=== PATIENT | female | born 1960 | race Caucasian/White ===

== ENCOUNTER 2016-12-19 06:24 | Day surgery (SDC) | payer OTHER ==
[~2016-12-19] VITALS: Ht 160 cm; Wt 74.8 kg
[~2016-12-19 06:24] MED LIST: PHEN-538; SULF1TAB7
[2016-12-19] MEDS ORDERED: NO MEDS (07:08)
[2016-12-19 07:57] VITALS: BP 143/74; PULSE 60; RESP 20
--- NOTE | 2016-12-19 08:37 | OPPN ---
Date/Time of Note Date/Time of Note DATE: 12/19/16 TIME: 08:35 Operative Report Preoperative Diagnosis Abdominal pain Chronic heartburn Screening Postoperative Diagnosis Hiatal hernia Reflux esophagitis with erosions Gastritis with erosions Internal hemorrhoid Operation/Procedure Performed Esophagogastroduodenoscopy and biopsy Colonoscopy Provider: DAYNE MUHAMMAD MD Anesthesia Type: moderate sedation Estimated blood loss: none Transfusion Required: no Specimens Gastric mucosal biopsy Grafts/Implants: none Complications: no DAYNE MUHAMMAD MD Dec 19, 2016 08:37
[2016-12-19] MEDS ORDERED: MIDAZOLAM 1 MG/ML 2 ML INJ ONE ×2 (08:51)
[2016-12-19] MEDS ORDERED: FENTAnyl 50 MCG/ML VIAL ONE (08:52)
[2016-12-19 09:00] VITALS: BP 109/71; RESP 18
--- NOTE | 2016-12-19 18:09 | GILP ---
DATE OF PROCEDURE: 12/19/2016 PROCEDURE PERFORMED: 1. Esophagogastroduodenoscopy and biopsy. 2. Colonoscopy. SURGEON: Lisy Leigh MD PREOPERATIVE DIAGNOSES: 1. Abdominal pain. 2. Chronic heartburn. 3. Screening colonoscopy. POSTOPERATIVE DIAGNOSES: 1. Hiatal hernia. 2. Reflux esophagitis with erosions. 3. Gastritis with erosions. 4. Gastric mucosal biopsies were taken for Helicobacter pylori test. 5. Colonoscopy all the way to the cecum. 6. Internal hemorrhoids. 7. No colon neoplasm was identified. INDICATIONS FOR PROCEDURE: Ms. Sanjuanita Vyas is a 55-year-old female patient who had upper abdominal pain and chronic heartburn not responding to therapy. Patient also needed screening colonoscopy. The procedures and possible complications were well explained to the patient. She understood and consented to the procedure. DESCRIPTION OF PROCEDURE: Under the influence of fentanyl and Versed, the gastroscope was carefully introduced into esophagus. Under direct vision, it was advanced to the stomach, into the pylorus, into the duodenal bulb, and descending duodenum. FINDINGS: Esophagus: Patient had a hiatal hernia with reflux esophagitis and erosions. S Stomach: She had gastritis with erosions. Gastric mucosal biopsies were taken for H. pylori test. Duodenum was normal. The colonoscope was carefully introduced in the rectum. Under direct vision, it was advanced all the way to the cecum. Findings: Patient had internal hemorrhoids. No colon neoplasm was identified. She tolerated the procedures very well, and there was no complication from the procedures. At the end of procedure, she was awake with stable vital signs, and she was discharged home in care of her family. IMPRESSION: Please see postoperative diagnoses. PLAN: 1. Omeprazole 40 mg p.o. q.a.m. 2. Zantac 300 mg p.o. q.h.s. 3. Await H. pylori test report. 4. Next screening colonoscopy in 10 years. Dictated By: MD RACHAEL Zhou/demetrius/pam /Document#: [id number]
== END 2016-12-19 12:03 | disposition home or self-care (01) ==
LOC: GIL 06:24
PROVIDERS: ATTEND Internal Medicine Gastroenterology
DX: Z12.11 Encounter for screening for malignant neoplasm of colon (principal); K29.60 Other gastritis without bleeding; K44.9 Diaphragmatic hernia without obstruction or gangrene; K21.0 Gastro-esophageal reflux disease with esophagitis; K64.8 Other hemorrhoids
CPT/HCPCS: 43239; 45378; 87081; J2250; J3010; Z7610

== ENCOUNTER 2017-05-24 09:58 | Emergency (ER) | END 2017-05-24 17:09 | disposition left against medical advice (07) ==

== ENCOUNTER 2017-05-27 14:28 | Emergency (ER) | END 2017-05-27 20:51 | disposition home or self-care (01) ==

== ENCOUNTER 2017-10-17 20:25 | Emergency (ER) | END 2017-10-18 00:20 | disposition home or self-care (01) ==

== ENCOUNTER 2018-05-02 10:29 | Inpatient (IN) | payer OTHER ==
[~2018-05-02] VITALS: Ht 157.5 cm; Wt 64.6 kg
[~2018-05-02 10:29] MED LIST changes: +ALPH200T2 PO; +CEPH-443 PO; +GABA300C16 PO; +GLIP5TAB13 PO; +METF500T24 PO; -PHEN-538; -SULF1TAB7
[2018-05-02] MEDS ORDERED: SOD CHLORIDE 0.9% 500 ML IV STA (16:39)
[2018-05-02] MEDS ORDERED: ALBUTEROL 0.5% (NEB) 2.5 MG/0.5 ML AMP INH STA (16:39)
[2018-05-02] MEDS ORDERED: CEFTRIAXONE 1 GM/50 ML (PMX) 50 ML IVPB ONE (17:30)
--- NOTE | 2018-05-02 18:23 | ERD ---
ER Documentation Chief Complaint Chief Complaint ANXIETY,DIZZINESS, AP,SOB, HAND NUMBNESS,INSOMNIA, HPI 57-year-old woman here with multiple complaints including recent dizziness, weakness, shortness of breath, paresthesias, insomnia. She denies chest pain, no cough, no fevers or chills, no vomiting or diarrhea, no headache or blurry vision. Patient had increased urinary frequency today. ROS All systems reviewed and are negative except as per history of present illness. Medications Home Meds Discontinued Reported Medications Alpha Lipoic Acid (Alpha Lipoic Acid) Unknown Strength Tablet, 250 MG PO TID, TAB 10/17/17 Metformin Hcl* (Metformin Hcl*) 500 Mg Tablet, 500 MG PO WITH BREAKFAST DINNE, #60 TAB 10/17/17 Glipizide* (Glipizide*) 5 Mg Tablet, 5 MG PO AC BREAKFAST DINNER, TAB 10/17/17 Discontinued Scripts Cephalexin* (Keflex*) 500 Mg Capsule, 500 MG PO QID for 5 Days, CAP Prov:NNACY DIXON S. 10/18/17 Gabapentin* (Gabapentin*) 300 Mg Capsule, 300 MG PO BID, #60 CAP Prov:NANCY DIXON S. 10/18/17 Allergies Allergies: Coded Allergies: No Known Allergy (Verified , 05/02/18) PMhx/Soc Diabetes mellitus, hypertension History of Surgery: Yes (C SECTION) Anesthesia Reaction: No Hx Neurological Disorder: No Hx Respiratory Disorders: No Hx Cardiac Disorders: No Hx Psychiatric Problems: No Hx Miscellaneous Medical Probl: Yes (Chronic UTI, DM) Hx Alcohol Use: No Hx Substance Use: No Hx Tobacco Use: No Smoking Status: Never smoker FmHx Family History: No diabetes Physical Exam Vitals Vital Signs Date Temp Pulse Resp B/P (MAP) Pulse Ox O2 O2 Flow FiO2 Time Delivery Rate 05/02/18 99.1 81 22 138/81 100 Room Air 17:55 (100) 05/02/18 72 18 100 21 16:46 05/02/18 98.2 79 18 149/78 99 10:36 (101) Physical Exam GENERAL: Well-developed, well-nourished, appears dehydrated, mild confusion, afebrile HEENT: Moist mucous membranes, pink conjunctiva, no cervical spine tenderness or step-off deformities, no goiter, no jaundice or icterus, extraocular movements intact without pain. No submandibular induration, and no pharyngeal erythema NEURO: Alert and oriented 3, patient has no focal deficits or facial asymmetry, she is able to answer simple questions and follow commands but she does appear confused. CARDIAC: Regular rate and rhythm, no murmurs rubs or gallops LUNGS: Clear bilaterally no wheezing crackles or stridor ABDOMEN: Soft nontender, no guarding, no rigidity, no rebound, no psoas sign no obturator sign. Normoactive bowel sounds SKIN: Warm and dry to touch, no abrasions, contusions, or hematomas, no lacerations, no ecchymosis, no target lesions, and without ulcers EXTREMIT: appears anxious Result Diagram: 05/02/18 1645 05/02/18 1645 Results 24 hrs Laboratory Tests Test 05/02/18 16:45 White Blood Count 7.7 10^3/ul Red Blood Count 4.88 10^6/ul Hemoglobin 14.4 g/dl Hematocrit 44.5 % Mean Corpuscular Volume 91.2 fl Mean Corpuscular Hemoglobin 29.5 pg Mean Corpuscular Hemoglobin Concent 32.4 g/dl Red Cell Distribution Width 13.1 % Platelet Count 291 10^3/UL Mean Platelet Volume 10.8 fl Immature Granulocytes % 0.100 % Neutrophils % 47.7 % Lymphocytes % 43.2 % Monocytes % 6.5 % Eosinophils % 1.6 % Basophils % 0.9 % Nucleated Red Blood Cells % 0.0 /100WBC Immature Granulocytes # 0.010 10^3/ul Neutrophils # 3.7 10^3/ul Lymphocytes # 3.3 10^3/ul Monocytes # 0.5 10^3/ul Eosinophils # 0.1 10^3/ul Basophils # 0.1 10^3/ul Nucleated Red Blood Cells # 0.0 10^3/ul Prothrombin Time 12.0 Sec Prothrombin Time Ratio 0.9 INR International Normalized Ratio 0.88 Activated Partial Thromboplast Time 28.9 Sec Urine Color YELLOW Urine Clarity SLIGHTLY CLOUDY Urine pH 6.0 Urine Specific [place] 1.014 Urine Ketones NEGATIVE mg/dL Urine Nitrite NEGATIVE mg/dL Urine Bilirubin NEGATIVE mg/dL Urine Urobilinogen NEGATIVE mg/dL Urine Leukocyte Esterase 3+ Tyra/ul Urine Microscopic RBC 1 /HPF Urine Microscopic WBC 56 /HPF Urine Hemoglobin NEGATIVE mg/dL Urine Glucose NEGATIVE mg/dL Urine Total Protein NEGATIVE mg/dl Sodium Level 143 mmol/L Potassium Level 4.3 mmol/L Chloride Level 108 mmol/L Carbon Dioxide Level 17 mmol/L Anion Gap 18 Blood Urea Nitrogen 18 mg/dl Creatinine 0.43 mg/dl Est Glomerular Filtrat Rate mL/min > 60 mL/min Glucose Level 100 mg/dl Calcium Level 9.8 mg/dl Total Bilirubin 0.0 mg/dl Direct Bilirubin 0.00 mg/dl Indirect Bilirubin 0.0 mg/dl Aspartate Amino Transf (AST/SGOT) 30 IU/L Alanine Aminotransferase (ALT/SGPT) 31 IU/L Alkaline Phosphatase 83 IU/L Troponin I < 0.012 ng/ml B-Type Natriuretic Peptide 74 PG/ML Total Protein 8.5 g/dl Albumin 4.7 g/dl Globulin 3.80 g/dl Albumin/Globulin Ratio 1.23 Lipase 63 U/L Thyroid Stimulating Hormone (TSH) 2.960 MIU/L Free Thyroxine 1.20 ng/dl Free Triiodothyronine (T3) pg/mL 3.78 pg/ml Current Medications Medications Dose Sig/Shahnaz Start Time Status Last (Trade) Ordered Route PRN Stop Time Admin Dose Reason Admin Albuterol 5 mg ONCE STAT 05/02/18 DC 05/02/18 (Proventil INH 16:39 16:46 0.5% (Neb)) 05/02/18 16:42 Sodium 500 ml @ Q1H STAT 05/02/18 DC 05/02/18 Chloride 500 mls/hr IV 16:39 16:52 05/02/18 17:38 Ceftriaxone 50 ml @ ONCE ONCE 05/02/18 DC 05/02/18 Sodium 100 mls/hr IVPB 17:30 17:49 05/02/18 17:59 Procedures/MDM IV line was established 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 Patient was afebrile EKG performed, read by me: 76 bpm, normal sinus rhythm, normal axis, no acute ST segment changes, narrow QRS complex, with good R-wave progression in precordial leads. Chest X-ray 1V Interpreted by me: Soft Tissue: No acute abnormalities Bones: No acute abnormalities Mediastinum/Cardiac Silhouette/Lungs: No acute abnormalities CBC is unremarkable, electrolytes revealed dehydration, liver function tests normal, troponin was negative, flu swab negative, urinalysis is positive for infection. Thyroid panel normal. I administered 1 L normal saline IV for dehydration ceftriaxone 1 g IV for acute UTI. Patient was dehydrated and has mild confusion with an active UTI, she will be admitted to [facility] for continued medical management and IV antibiotics Departure Diagnosis: Primary Impression: Acute UTI Additional Impression: Acute dehydration Condition: DOC Ledbetter MD May 02, 2018 18:21
[2018-05-02 20:15] VITALS: BP 149/96; PULSE 84; RESP 18
[2018-05-02] MEDS ORDERED: ONDANSETRON 4 MG INJ IV PRN (21:30)
[2018-05-02] MEDS ORDERED: ACETAMINOPHEN 325 MG TAB PO PRN (21:30)
[2018-05-02] MEDS ORDERED: DEXTROSE 50% 50 ML SYRINGE IV PRN ×2 (21:30)
[2018-05-02] MEDS ORDERED: GLUCOSE GEL 15 GRAM TUBE PO PRN ×2 (21:30)
[2018-05-02] MEDS ORDERED: SOD CHLORIDE 0.9% 1,000 ML IV SCH (21:30)
[2018-05-02] MEDS ORDERED: GLUCAGON 1 MG INJ IM PRN (21:30)
[2018-05-02] MEDS ORDERED: GLUCOSE GEL 15 GRAM TUBE BUCCAL PRN (21:30)
[2018-05-02 22:56] VITALS: Ht 157.5 cm; Wt 64.6 kg
[2018-05-03] MEDS ORDERED: LORAZEPAM 0.5 MG TAB PO ONE (01:00)
--- NOTE | 2018-05-03 01:30 | NUR ---
pt admitted w/ diagnosis of UTI,AMS from ER via [facility]. alert,oriented x4, no sob, w/ multiple complaints: dizziness, sob, insomnia, pain in the back of the neck, tingling sensation in both upper and lower extremities. pt states she is in a lot of stress ,unable to sleep 2 days in a row and today is the third day. Oriented to staff, bed light, bed control, hourly rounding. skin assessment done. Belongings checked. DR Velasco made aware of pt's admission w/ orders made and carried out. urine sent for urine culture. pt states she is unable to sleep but does not want medication for sleep instead she wants medication to help her calm down. Ativan 0.5 mg tab po given as prescribed after pt still complained of being anxious even after providing relaxation techniques.at this time pt noted asleep in bed. will continue to monitor Addendum: 05/03/18 at 0654 by VALENTIN ESTRADA RN pt states she was able to sleep for 5 hours. no complaint at this time
[2018-05-03 02:00] VITALS: BP 124/77; PULSE 63; RESP 18
[2018-05-03] MEDS ORDERED: ACCU-CHEK XX SCH (02:00)
[2018-05-03] MEDS ORDERED: PANTOPRAZOLE 40 MG INJ IV SCH (06:00)
[2018-05-03 07:53] VITALS: BP 139/78; PULSE 73; RESP 16
[2018-05-03] MEDS: INSULIN ASPART [NOVOLOG] 3 ML PEN SC SCH ×2 (07:57→12:00)
--- NOTE | 2018-05-03 08:03 | HP ---
Date/Time of Note Date/Time of Note DATE: 05/03/18 TIME: 08:03 Assessment/Plan VTE Prophylaxis Risk score (from Ns)>0 risk: 1 SCD applied (from Ns): No SCD contraindicated: low risk/ambulating Pharmacological prophylaxis: NA/contraindicated Pharm contraindication: low risk/ambulating Lines/Catheters [facility] Peripheral IV Urinary Cath still in place: No Assessment/Plan Hospital Course 1. UTI 2. Hx of DM, HG A1 C is 5.6 now. Pt reported after diagnosis she changed her diet, lost 32 lb and did not take any meds. for 6-8 month. 3. Hx of arthritis per pt., especially knees 4. Hx of herniated disk/s in neck, per pt. On CT neck found. Cervical spondylosis/degenerative enthesopathy as described above, most pronounced at C6- 7. Mild to moderate central canal stenosis at C4-5, C5-6 and C6-7, and mild central canal stenosis at C3-4. Multilevel foraminal narrowing outlined in detail above. Osteopenia. Small left thyroid nodule. 5. Anosmia and per pt hx of chronic nasal congestion. On CT scan Mild to moder ate right and mild left maxillary sinus mucosal thickening. Small left frontal sinus osteoma. Patent ostiomeatal complexes. Mild rightward nasal septal deviation. 6. Small left thyroid nodule found on CT scan. Assessment/Plan -hg A1 C -CT scan head and neck without contrast DVT prophylaxis Ambulation -GI prophylaxis not need, pt is upright -c/w IV fluids -c/w AB Result Diagram: 05/02/18 1645 05/03/18 0429 Results 24hrs Laboratory Tests Test 05/02/18 16:45 05/02/18 20:55 05/03/18 04:29 05/03/18 07:56 White Blood Count 7.7 Red Blood Count 4.88 Hemoglobin 14.4 Hematocrit 44.5 Mean Corpuscular 91.2 Volume Mean Corpuscular 29.5 Hemoglobin Mean Corpuscular 32.4 Hemoglobin Concen t Red Cell 13.1 Distribution Width Platelet Count 291 Mean Platelet 10.8 H Volume Immature 0.100 Granulocytes % Neutrophils % 47.7 Lymphocytes % 43.2 Monocytes % 6.5 Eosinophils % 1.6 Basophils % 0.9 Nucleated Red 0.0 Blood Cells % Immature 0.010 Granulocytes # Neutrophils # 3.7 Lymphocytes # 3.3 H Monocytes # 0.5 Eosinophils # 0.1 Basophils # 0.1 Nucleated Red 0.0 Blood Cells # Prothrombin Time 12.0 Prothrombin Time 0.9 Ratio INR International 0.88 Normalized Ratio Activated 28.9 Partial Thrombopl ast Time Urine Color YELLOW Urine Clarity SLIGHTLY CLOUDY A Urine pH 6.0 Urine Specific 1.014 [place] Urine Ketones NEGATIVE Urine Nitrite NEGATIVE Urine Bilirubin NEGATIVE Urine NEGATIVE Urobilinogen Urine Leukocyte 3+ H Esterase Urine Microscopic 1 RBC Urine Microscopic 56 H WBC Urine Hemoglobin NEGATIVE Urine Glucose NEGATIVE Urine Total NEGATIVE Protein Sodium Level 143 142 Potassium Level 4.3 3.7 Chloride Level 108 113 H Carbon Dioxide 17 L 20 L Level Anion Gap 18 H 9 # Blood Urea 18 12 Nitrogen Creatinine 0.43 L 0.44 Est Glomerular > 60 > 60 Filtrat Rate mL/min Glucose Level 100 106 Calcium Level 9.8 9.2 Total Bilirubin 0.0 L Direct Bilirubin 0.00 Indirect 0.0 Bilirubin Aspartate Amino 30 Transf (AST/SGOT) Alanine 31 Aminotransferase (ALT/SGPT) Alkaline 83 Phosphatase Troponin I < 0.012 B-Type 74 Natriuretic Peptide Total Protein 8.5 H Albumin 4.7 Globulin 3.80 H Albumin/Globulin 1.23 Ratio Lipase 63 Thyroid 2.960 Stimulating Hormone (TSH) Free Thyroxine 1.20 Free 3.78 Triiodothyronine (T3) pg/mL Bedside Glucose 162 92 HPI/ROS Admit Date/Time Admit Date/Time May 02, 2018 at 18:32 Hx of Present Illness 57-year-old woman with history of DM, herniated disk in neck and hypertension was seen in ER with multiple complaints including recent dizziness, weakness, shortness of breath, paresthesias, insomnia. She denies chest pain, no cough, no fevers or chills, no vomiting or diarrhea, no headache or blurry vision. Pat ient had increased urinary frequency lately. Pt reported that she was diagnosed with DM last year but her medication Glipizide make her blood sugar too low and she stopped taking it. Also she reported that she has a hernia or hernias of the disks in her cervical spine, that make her hands week sometimes. Reported few UTI last year with sometimes urinary incontinence. Hx of arthritis and disorder of thyroid. Pt is unable to provide more detailed history, she does not know the terms, her midical history is reviewed, there were paresthesia in back, open wound in past that coincide with pt history. ROS dizziness and nasal congestion ENT: no complaints, bleeding, pain, congestion (chronic), discharge, dysphagia, sore throat, other (absent of smell and taste) Respiratory: shortness of breath (yesterday) Gastrointestinal: nausea; No no complaints, No pain, No blood, No constipation, No decreased appetite, No flatus, No passing stool, No vomiting, No other Genitourinary: no complaints, bleeding, dysuria, discharge, flank pain, hematuria, other Musculoskeletal: back pain (neck pain), bone/joint pain (both knees and shoulder sometimes) Endocrine: weight change (lost 32 lb in 2 month) Psychological: depression, suicidal; No no complaints, No nl mood/affect, No anxiety, No confusion, No other PMH/Family/Social Past Medical History Medical History: diabetes Medications Current Medications Diagnostic Test (Pha) (Accu-Chek) 1 ea 02 XX ; Start 05/03/18 at 02:00 Insulin Aspart (Novolog Insulin Pen) NOVOLOG *MILD* ALGORITHM WITH MEALS BEDTIME SC ; Start 05/03/18 at 08:00 Ceftriaxone Sodium 50 ml @ 100 mls/hr Q24H IVPB ; Start 05/03/18 at 18:00 Pantoprazole (Protonix Iv) 40 mg DAILY@06 IV Last administered on 05/03/18at 05:52; Admin Dose 40 MG; Start 05/03/18 at 06:00 Ondansetron HCl (Zofran Inj) 4 mg Q6H PRN IV NAUSEA AND/OR VOMITING; Start 05/02/18 at 21:30 Acetaminophen (Tylenol Tab) 650 mg Q6H PRN PO MILD PAIN(1-3)OR ELEVATED TEMP Last administered on 05/02/18at 21:31; Admin Dose 650 MG; Start 05/02/18 at 21:30 Sodium Chloride 1,000 ml @ 50 mls/hr Q20H IV Last administered on 05/02/18at 21:21; Admin Dose 50 MLS/HR; Start 05/02/18 at 21:30 Miscellaneous Information 1 ea NOTE XX ; Start 05/02/18 at 21:30 Glucose (Glutose) 15 gm Q15M PRN PO DECREASED GLUCOSE; Start 05/02/18 at 21:30 Glucose (Glutose) 22.5 gm Q15M PRN PO DECREASED GLUCOSE; Start 05/02/18 at 21:30 Dextrose (D50w Syringe) 25 ml Q15M PRN IV DECREASED GLUCOSE; Start 05/02/18 at 21:30 Dextrose (D50w Syringe) 50 ml Q15M PRN IV DECREASED GLUCOSE; Start 05/02/18 at 21:30 Glucagon (Glucagen) 1 mg Q15M PRN IM DECREASED GLUCOSE; Start 05/02/18 at 21:30 Glucose (Glutose) 15 gm Q15M PRN BUCCAL DECREASED GLUCOSE; Start 05/02/18 at 21:30 Coded Allergies: No Known Allergy (Verified , 05/02/18) Past Surgical History Past Surgical Hx: other (2 c section 12 and 15 years ago) Family History Significant Family History: no pertinent family hx Social History Alcohol Use: none Smoking Status: Never smoker Drug Use: none Exam/Review of Systems Vital Signs Vitals Vital Signs Date Temp Pulse Resp B/P (MAP) Pulse Ox O2 O2 Flow FiO2 Time Delivery Rate 05/03/18 98.1 63 18 124/77 99 02:00 (93) 05/02/18 Room Air 20:06 05/02/18 21 16:46 Intake and Output 05/02/18 05/02/18 05/03/18 1515:00 23:00 07:00 IntakeIntake Total 50 ml 375 ml BalanceBalance 50 ml 375 ml Exam Constitutional: alert, oriented Psych: no complaints, anxiety, confusion, depression; No nl mood/affect, No suicidal, No other Eyes: nl conjunctiva Neck: supple, non-tender Respiratory: clear to auscultation, normal air movement Cardiovascular: regular rate and rhythm, edema; No nl pulses, No bruits, No diastolic murmur, No gallop, No irregular rhythm, No jugular venous distention (JVD), No murmurs/extra sounds, No rub, No systolic murmur, No S3, No S4, No other Gastrointestinal: soft Genitourinary - Female: CVA tenderness; No nl adnexae, No nl external genitalia, No CMT, No uterus, No other Musculoskeletal: range of motion (full, walking) Neurological: CAR PUSHER II-XII intact JJ OLMOS May 03, 2018 08:03
[2018-05-03 13:51] VITALS: BP 147/81; PULSE 66; RESP 18
--- NOTE | 2018-05-03 15:22 | PDOCDIS ---
Discharge Instructions DIAGNOSIS Discharge Diagnosis confusion resolved UTI sinus infection CONDITION [id number] Patient Condition: [id number] Fair HOME CARE INSTRUCTIONS: [id number] Diet Instructions: [id number] Regular ACTIVITY: [id number] Activity Restrictions: [id number] Slowly Increase Activity Rest between Activity Avoid heavy lifting FOLLOW UP/APPOINTMENTS Follow-up Plan f/u PCP in1 week LAZARO PADILLA MD May 03, 2018 15:22
[2018-05-03] MEDS ORDERED: CIPR-193 PO (15:23)
--- NOTE | 2018-05-03 15:57 | DS ---
DATE OF ADMISSION: 05/02/2018 DATE OF DISCHARGE: 05/03/2018 HISTORY OF PRESENTING ILLNESS AND HOSPITAL COURSE: This is a 57-year-old female with history of diab etes, questionable herniated disk in the neck and hypertension, who was seen in the ER with multiple complaints, recent dizziness, weakness, shortness of breath, paraesthesia, insomnia. I have been jesus d by the ER physician that the patient presented with confusion. The patient has had increasing urin jose elias frequency lately. The patient was reported that she was diagnosed with diabetes last year, but h er medication glipizide make her blood glucose so low and she stopped taking it. The patient's repor karen last few times she was having UTI, history of arthritis, disorder of the thyroid. On arrival to ED, vital signs were within normal limits, blood pressure 124/77. White count 7.7, hemoglobin 14.4, platelet count 291. Labs show sodium of 142, potassium 3.7, chloride 113, bicarbonate of 20, BUN of 12, creatinine 0.44. UA showed 3+ leukocyte esterase, 56 WBCs. Influenza A and B were checked which were negative. Chest x-ray was negative. Sinuses CT was done that showed mild to moderate right an d mild left maxillary mucosal thickening, small left frontal sinus osteoma, patent ostiomeatal comple xes. C-spine CT showed cervical spondylosis, mild to moderate central canal stenosis at C4 to C5, C6 to C7, multiple foraminal narrowing. The patient was feeling much better next day, no fevers. The patient was not at all confused. I clarified with the patient that she lives with her kids who are 1 2 and 15 years of age. Currently, the patient is stable to be discharged home with p.o. Cipro for 3 days. The patient will follow up with PCP. FINAL DISCHARGE DIAGNOSES: 1. Urinary tract infection. 2. History of diabetes. HbA1c is 5.6 now. 3. History of arthritis. 4. History of herniated disk in the neck. On CT, the patient has cervical stenosis, followed up wit h the PCP and also as an outpatient. 5. Anosmia with a history of nasal congestion. On CT scan, mild to moderate left maxillary sinus th ickening, frontal sinus osteoma. She will follow up with ENT as an outpatient. 6. Small left thyroid nodule. Dictated By: LAZARO MATHUR/FORTINO Conf#: [id number] DID#: [id number]
--- NOTE | 2018-05-03 16:45 | NUR ---
PT. WILL BE DISCHARGE HOME AT THIS TIME, ALL DISCHARGE INSTRUCTIONS PROVIDED TO PT. AND ABLE TO UNDERSTAND WELL. NO CHANGE OF CONDITION , VS WITHIN RANGE ENDORSED.
[2018-05-03] MEDS ORDERED: CEFTRIAXONE 1 GM/50 ML (PMX) 50 ML IVPB SCH (18:00)
[2018-05-04] MEDS ORDERED: PANTOPRAZOLE (EC) 40 MG TAB PO SCH (06:00)
[2018-05-17] MEDS ORDERED: IBUP-1542 PO (15:32)
== END 2018-05-03 16:40 | disposition home or self-care (01) | DRG 690 ==
LOC: E/R 10:29 → PP2 18:32
PROVIDERS: ADMIT Internal Medicine; ATTEND Internal Medicine
DX: N39.0 Urinary tract infection, site not specified (principal); E86.0 Dehydration; R43.0 Anosmia; E04.1 Nontoxic single thyroid nodule
CPT/HCPCS: 36415; 70486; 71045; 72125; 80048; 80053; 81001; 82962; 83036; 83690; 83880; 84439; 84443; 84481; 84484; 85025; 85610; 85730; 87086; 87400; 93005; 94644; 96365; C9113; J0696; J1815; J7030; J7040

== ENCOUNTER 2018-06-06 16:19 | Emergency (ER) | payer OTHER ==
[~2018-06-06] VITALS: Wt 61.8 kg
[~2018-06-06 16:19] MED LIST changes: -ALPH200T2 PO; -CEPH-443 PO; +CIPR-193 PO; -GABA300C16 PO; -GLIP5TAB13 PO; +IBUP-1542 PO; -METF500T24 PO
--- NOTE | 2018-06-06 18:29 | ERD ---
ER Documentation Chief Complaint Chief Complaint l. facial numbness since 629 today, blade arm/leg numbness x1 mo, SEE NOTE ROS All systems reviewed and are negative except as per history of present illness. Medications Home Meds Reported Medications Calcium Carb/Mag Ox/Zinc Sulf (Iultfou-Lryasimmq-Nzun Tablet) 1 Each Tablet, 1 EACH PO, TAB 06/06/18 Cyanocobalamin* (Vitamin B12*) 500 Mcg Tab, 1000 MCG PO DAILY, TAB 06/06/18 Ascorbic Acid* (Vitamin C*) 500 Mg Capsule.sa, 500 MG PO DAILY, CAP 06/06/18 Magaldrate/Simethicone* (Mag-Al Plus Suspension*) 30 Ml Oral.susp, 30 ML PO Q6H PRN for GASTROINTESTINAL UPSET, ML 06/06/18 Discontinued Scripts Ibuprofen* (Motrin*) 600 Mg Tab, 600 MG PO Q6, #20 TAB con comida Prov:NICO BEGUM PA-C 05/17/18 Ciprofloxacin Hcl* (Ciprofloxacin Hcl*) 250 Mg Tablet, 250 MG PO BID for 3 Days, #14 TAB Prov:LAZARO PADILLA MD 05/03/18 Allergies Allergies: Coded Allergies: No Known Allergy (Verified , 05/17/18) PMhx/Soc History of Surgery: Yes () Anesthesia Reaction: No Hx Neurological Disorder: No Hx Respiratory Disorders: No Hx Cardiac Disorders: Yes (HTN) Hx Psychiatric Problems: Yes (anxiety) Hx Alcohol Use: No Hx Substance Use: No Hx Tobacco Use: No Physical Exam Vitals Vital Signs Date Temp Pulse Resp B/P (MAP) Pulse Ox O2 O2 Flow FiO2 Time Delivery Rate 06/06/18 70 20 91/60 (70) 97 Room Air 19:37 06/06/18 99.2 77 20 125/80 100 16:29 (95) Physical Exam Const: No acute distress Head: Atraumatic Eyes: Normal Conjunctiva ENT: Normal External Ears, Nose and Mouth. Neck: Full range of motion. No meningismus. Resp: Clear to auscultation bilaterally Cardio: Regular rate and rhythm, no murmurs Abd: Soft, non tender, non distended. Normal bowel sounds Skin: No petechiae or rashes Back: No midline or flank tenderness Ext: No cyanosis, or edema Neur: Awake and alert Psych: Normal Mood and Affect Result Diagram: 06/06/18190606/06/181904 Results 24 hrs Laboratory Tests Test 06/06/18 19:05 06/06/18 19:07 06/06/18 19:15 06/06/18 19:21 Sodium Level 138 mmol/L Potassium Level 3.0 mmol/L Chloride Level 107 mmol/L Carbon Dioxide 18 mmol/L Level Anion Gap 13 Blood Urea 17 mg/dl Nitrogen Creatinine 0.47 mg/dl Est Glomerular > 60 mL/min Filtrat Rate mL/min Glucose Level 198 mg/dl Calcium Level 9.6 mg/dl Total Bilirubin 0.3 mg/dl Direct Bilirubin 0.00 mg/dl Indirect 0.3 mg/dl Bilirubin Aspartate Amino 28 IU/L Transf (AST/SGOT ) Alanine 20 IU/L Aminotransferase (ALT/SGPT) Alkaline 103 IU/L Phosphatase Troponin I < 0.012 ng/ml Total Protein 7.3 g/dl Albumin 4.1 g/dl Globulin 3.20 g/dl Albumin/Globulin 1.28 Ratio Lipase 47 U/L White Blood 7.3 10^3/ul Count Red Blood Count 4.51 10^6/ul Hemoglobin 13.3 g/dl Hematocrit 38.9 % Mean Corpuscular 86.3 fl Volume Mean Corpuscular 29.5 pg Hemoglobin Mean Corpuscular 34.2 g/dl Hemoglobin Wendy nt Red Cell 13.1 % Distribution Width Platelet Count 322 10^3/UL Mean Platelet 10.0 fl Volume Immature 0.300 % Granulocytes % Neutrophils % 71.0 % Lymphocytes % 24.1 % Monocytes % 4.1 % Eosinophils % 0.0 % Basophils % 0.5 % Nucleated Red 0.0 /100WBC Blood Cells % Immature 0.020 10^3/ul Granulocytes # Neutrophils # 5.2 10^3/ul Lymphocytes # 1.8 10^3/ul Monocytes # 0.3 10^3/ul Eosinophils # 0.0 10^3/ul Basophils # 0.0 10^3/ul Nucleated Red 0.0 10^3/ul Blood Cells # Urine Color YELLOW Urine Clarity SLIGHTLY CLOUDY Urine pH 9.0 Urine Specific 1.017 [place] Urine Ketones NEGATIVE mg/dL Urine Nitrite NEGATIVE mg/dL Urine Bilirubin NEGATIVE mg/dL Urine NEGATIVE mg/dL Urobilinogen Urine Leukocyte 2+ Tyra/ul Esterase Urine 3 /HPF Microscopic RBC Urine 24 /HPF Microscopic WBC Urine Squamous MODERATE /HPF Epithelial Cells Urine FEW /HPF Transitional Epithelial Cells Urine Bacteria FEW /HPF Urine Mucus FEW /HPF Urine Hemoglobin NEGATIVE mg/dL Urine Glucose NEGATIVE mg/dL Urine Total 2+ mg/dl Protein Bedside Glucose 212 mg/dL Current Medications Medications Dose Sig/Shahnaz Start Time Status Last (Trade) Ordered Route PRN Stop Time Admin Dose Reason Admin Sodium 1,000 ml @ Q1H STAT 06/06/18 DC 06/06/18 Chloride 1,000 mls/hr IV 18:51 19:33 06/06/18 19:50 Famotidine 20 mg ONCE STAT 06/06/18 DC 06/06/18 (Pepcid Iv) IV 18:51 19:33 06/06/18 18:53 Ceftriaxone 50 ml @ ONCE ONCE 06/06/18 DC 06/06/18 Sodium 100 mls/hr IVPB 21:00 20:55 06/06/18 21:29 Potassium 40 meq ONCE STAT 06/06/18 DC 06/06/18 Chloride PO 22:24 22:46 (Klor-Con 20) 06/06/18 22:25 Procedures/MDM DOCUMENTS REVIEWED: ED nurse, [ ] LAB INTERPRETATION: [] EKG: Time: [ ] My Interpretation IMAGING: [ ] ED COURSE: [] REEXAMINATION/REEVALUATION: Time: [] MEDICAL DECISION MAKING: []. Stable for discharge with precautionary instructions and outpatient follow-up as counseled. Counseled patient regarding diagnostic workup, diagnosis and need for followup. Understands to return to ED if symptoms recur, worsen or any other concerns. Departure Diagnosis: Primary Impression: UTI (urinary tract infection) Urinary tract infection type: site unspecified Hematuria presence: without hematuria Qualified Codes: N39.0 - Urinary tract infection, site not specified Additional Impressions: Hypokalemia Anxiety Paresthesia Gastritis Gastritis type: unspecified gastritis Chronicity: unspecified Gastritis bleeding: without bleeding Qualified Codes: K29.70 - Gastritis, u nspecified, without bleeding Condition: Stable FLORES BARNEY MD Jun 06, 2018 18:29
[2018-06-06] MEDS ORDERED: FAMOTIDINE 20 MG INJ IV STA (18:51)
[2018-06-06] MEDS ORDERED: SOD CHLORIDE 0.9% 1,000 ML IV STA (18:51)
[2018-06-06] MEDS ORDERED: CEFTRIAXONE 1 GM/50 ML (PMX) 50 ML IVPB ONE (21:00)
[2018-06-06] MEDS ORDERED: POTASSIUM CHLORIDE (SR) 20 MEQ TAB PO STA (22:24)
[2018-06-06] MEDS ORDERED: CYAN500T46 PO (22:57)
[2018-06-06] MEDS ORDERED: ASCO500C7 PO (22:57)
[2018-06-06] MEDS ORDERED: CALC-729 PO (22:57)
[2018-06-06] MEDS ORDERED: UDMYL PO (22:57)
[2018-06-06] MEDS ORDERED: FAMO-96 PO (23:50)
[2018-06-06] MEDS ORDERED: NITR-58 PO (23:50)
[2018-06-06 23:58] VITALS: BP 117/76; PULSE 60; RESP 21
== END 2018-06-06 23:58 | disposition home or self-care (01) ==
LOC: E/R 16:19
DX: N39.0 Urinary tract infection, site not specified (principal); E87.6 Hypokalemia; F41.9 Anxiety disorder, unspecified; K29.70 Gastritis, unspecified, without bleeding; R20.2 Paresthesia of skin; I10 Essential (primary) hypertension
CPT/HCPCS: 36415; 80053; 81001; 82962; 83690; 84484; 85025; 87086; 93005; 96374; 96375; J0696; J7030; Z7502; Z7610